=== PATIENT | male | born 1995 | race Caucasian/White ===

== ENCOUNTER 2021-06-27 19:05 | Emergency (ER) | payer SELFPAY ==
[~2021-06-27] VITALS: Ht 185.4 cm; Wt 120.0 kg
[2021-06-27 19:07] VITALS: BP 132/82
[2021-06-27] MEDS ORDERED: IBUP-2029 MT (21:52)
== END 2021-06-27 22:18 | disposition home or self-care (01) ==
LOC: ER 19:05
DX: S70.02XA Contusion of left hip, initial encounter (principal); W11.XXXA Fall on and from ladder, initial encounter; Y93.89 Activity, other specified; Y92.89 Other specified places as the place of occurrence of the external cause; Y99.8 Other external cause status; M79.605 Pain in left leg
CPT/HCPCS: 71250; 73552; 74176; 99284